=== PATIENT | male | born 1945 | race Caucasian/White ===

== ENCOUNTER 2024-04-10 03:45 | Inpatient (IN) | payer OTHER, MEDICARE ==
[2024-04-10] VITALS (14 sets, daily range): BP systolic 107–131; BP diastolic 48–67; PULSE 60–78; RESP 18–47; TEMP 97.4–97.7; O2SAT 92–97
[~2024-04-10] VITALS: Ht 185.4 cm; Wt 113.0 kg
[~2024-04-10 03:45] MED LIST: ASPI81TA52 PO; ATOR40TA71 PO; CLOP75TA34 PO; FLO0.4C PO; FURO-150 PO; MULT-1085 PO
[2024-04-10 04:05] LABS: BASOPHILS # (AUTO) 0.1 X10'3 (0-0.2); BASOPHILS % (AUTO) 0.8 % (0-1); EOSINOPHILS # (AUTO) 0.2 X10'3 (0-0.9); EOSINOPHILS % (AUTO) 3.4 % (0-6); HEMATOCRIT 37.5 % (42.0-52.0); HEMOGLOBIN 12.5 g/dl (14.0-17.9); LYMPHOCYTES # (AUTO) 1.4 X10'3 (1.1-4.8); LYMPHOCYTES % (AUTO) 20.8 % (21-51); MEAN CORPUSCULAR HEMOGLOBIN 28.8 PG (27.0-31.0); MEAN CORPUSCULAR HGB CONC 33.4 g/dL (33.0-36.5); MEAN CORPUSCULAR VOLUME 86.3 FL (78-98); MEAN PLATELET VOLUME 7.5 FL (7.4-10.4); MONOCYTES # (AUTO) 0.9 X10'3 (0-0.9); MONOCYTES % (AUTO) 13.5 % (2-12); NEUTROPHILS # (AUTO) 4.1 X10'3 (1.8-7.7); NEUTROPHILS % (AUTO) 61.5 % (42-75); PLATELET COUNT 200 X10'3 (140-440); RED BLOOD COUNT 4.35 X10'6 (4.70-6.10); RED CELL DISTRIBUTION WIDTH 16.6 % (11.5-14.5); WHITE BLOOD COUNT 6.7 X10'3 (4.5-11.0)
[2024-04-10] MEDS: ipratropium/albuterol 3ml nebule NEB PRN (04:09)
[2024-04-10] MEDS ORDERED: TAMSULOSIN (04:23)
[2024-04-10] MEDS ORDERED: FLO0.4C (04:23)
[2024-04-10] MEDS ORDERED: SPIR25TA5 (04:23)
[2024-04-10] MEDS ORDERED: ATOR40TA72 (04:23)
[2024-04-10] MEDS ORDERED: TRAZ-251 (04:23)
[2024-04-10] MEDS ORDERED: FURO40TA4 (04:23)
[2024-04-10] MEDS ORDERED: FURO20TA4 (04:23)
[2024-04-10 04:41] LABS: ALANINE AMINOTRANSFERASE 20 U/L (12-78); ALBUMIN 2.7 G/DL (3.4-5.0); ALBUMIN/GLOBULIN RATIO 0.7 (1.1-1.5); ALKALINE PHOSPHATASE 87 IU/L (46-116); ANION GAP 0 (8-16); ASPARTATE AMINO TRANSFERASE 18 U/L (10-37); BILIRUBIN,TOTAL 0.5 MG/DL (0.1-1.0); BLOOD UREA NITROGEN 15 MG/DL (7-18); BUN/CREATININE RATIO 17.9 (10.0-20.0); CALCIUM 8.5 MG/DL (8.5-10.1); CHLORIDE 98 MMOL/L (99-107); CREATININE 0.84 MG/DL (0.60-1.10); GLUCOSE 97 MG/DL (70-104); POTASSIUM 4.8 MMOL/L (3.5-5.1); SODIUM 136 MMOL/L (135-145); TOTAL CARBON DIOXIDE 37.9 MMOL/L (24-32); TOTAL PROTEIN 6.8 G/DL (6.4-8.2); eCRCL 78 ML/MIN; eGFR 88 ML/MIN
[2024-04-10 05:21] LABS: ABG BASE EXCESS 3.7 mmol/L (-2.0-3.0); ABG OXYGEN SATURATION 92.1 % (94.0-98.0); ABG PCO2 (T) 46.7 mmHg (35.0-48.0); ABG PH (T) 7.411 (7.350-7.450); ABG PO2 (T) 65.1 mmHg (83.0-108.0); FCOHb 0.2 % (0.5-1.5); FHHb 7.9 % (0.0-5.0); FMetHb 0.3 % (0.0-1.5); FO2Hb 91.6 % (94.0-98.0); MODE MASK - BIPAP; TOTAL HEMOGLOBIN 12.9 G/dl (13.5-17.5)
[2024-04-10] MEDS: methylPREDNISolone sod succ 125mg/2ml vial IV ONE (05:53)
[2024-04-10] MEDS: CefTRIAXone/D5W-Rocephin 1gm 50 ML IV ONE (05:54)
[2024-04-10] MEDS: albuterol 2.5 MG/3 ML nebule ONE (07:31)
[2024-04-10] MEDS: albuterol 2.5 MG/3 ML nebule NEB SCH (07:32)
[2024-04-10 08:39] LABS: BILIRUBIN,URINE NEGATIVE (Neg); CLARITY,URINE SLIGHTLY CLOUDY (Clear); COLOR,URINE YELLOW (Yellow); GLUCOSE, URINE NEGATIVE (Neg); KETONES,URINE TRACE mg/dl (Neg); LEUKOCYTE ESTERASE ,URINE NEGATIVE (Neg); NITRITES, URINE NEGATIVE (Neg); OCCULT BLOOD,URINE NEGATIVE (Neg); PROTEIN,URINE NEGATIVE (Neg); UA COLLECTION TYPE CLN CATCH MIDSTREAM
[2024-04-10 08:41] LABS: BACTERIA,URINE NONE SEEN /HPF (Neg); RBC,URINE 0-2 /HPF (0-2); SQUAMOUS EPITHELIAL CELL,UR FEW /LPF (FEW); WBC,URINE 0-4 /HPF (0-4)
[2024-04-10] MEDS ORDERED: acetaminophen 325mg tablet PO PRN (09:55)
[2024-04-10] MEDS: LIDOcaine 5% patch TP SCH (09:55)
[2024-04-10] MEDS ORDERED: magnesium Cl slow-release 64mg tablet PO PRN (09:55)
[2024-04-10] MEDS ORDERED: potassium Cl 20 mEq SR tablet PO PRN ×2 (09:55)
[2024-04-10] MEDS ORDERED: magnesium hydroxide 30ml (MOM) UD suspension PO PRN (09:55)
[2024-04-10] MEDS ORDERED: ondansetron/PF 4mg/2ml inj IV PRN (09:55)
[2024-04-10] MEDS ORDERED: potassium Cl 40MEQ/1/2NS 520ml 520 ML IV PRN (09:55)
[2024-04-10] MEDS ORDERED: magnesium sulf-water 2g/50mL 50 ML IV PRN (09:55)
[2024-04-10] MEDS ORDERED: mag hydrox/Alum hydrox/simeth 30ml oral suspension PO PRN (09:55)
[2024-04-10] MEDS ORDERED: magnesium sulf-water 4G/100mL 100 ML IV PRN (09:55)
[2024-04-10 11:17] LABS: MAGNESIUM 2.1 MG/DL (1.5-2.4); POTASSIUM 4.7 MMOL/L (3.5-5.1)
[2024-04-10] MEDS: ipratropium/albuterol 3ml nebule NEB SCH (11:54)
[2024-04-10] MEDS: azithromycin/NS 500mg/250ml 250 ML IV SCH (14:54)
[2024-04-10] MEDS: CefTRIAXone/D5W-Rocephin 1gm 50 ML IV SCH (14:54)
[2024-04-10] MEDS: methylPREDNISolone sod succ/PF 40mg inj. IV SCH (14:55)
[2024-04-10] MEDS: furosemide 40mg/4ml inj IV ONE (17:44)
[2024-04-10] MEDS: glycopyrrolate 1mg tablet PO SCH (17:44)
[2024-04-10 18:35] LABS: RSV LAB CLEARVIEW AG NEGATIVE (NEGATIVE)
[2024-04-10] MEDS: K and/or MAG REPLACEMENT MC SCH (20:00)
[2024-04-10] MEDS: traZODone 50mg tablet PO SCH (20:50)
[2024-04-10] MEDS: docusate sod 100mg capsule PO SCH (20:50)
[2024-04-10] MEDS: guaiFENesin ER 600mg tablet PO SCH (20:50)
[2024-04-10] MEDS: nystatin 15 GM powder TP SCH (20:50)
[2024-04-10] MEDS: heparin, porcine 5000 units/ml vial SQ SCH (20:58)
[2024-04-10] MEDS: PERFLUTREN PROTEIN-A MICROSPHR (Optison) 0.22 MG/ML 3ML VIAL IV ONE (20:59)
[2024-04-11] VITALS (11 sets, daily range): BP systolic 121–149; BP diastolic 49–96; PULSE 20–82; RESP 17–20; TEMP 97.5–98.9; O2SAT 88–96
[2024-04-11 06:41] LABS: BASOPHILS % (AUTO) 0 % (0-1); EOSINOPHILS % (AUTO) 0 % (0-6); HEMATOCRIT 38.1 % (42.0-52.0); HEMOGLOBIN 12.6 g/dl (14.0-17.9); LYMPHOCYTES # (AUTO) 0.5 X10'3 (1.1-4.8); LYMPHOCYTES % (AUTO) 7.4 % (21-51); MEAN CORPUSCULAR HEMOGLOBIN 28.6 PG (27.0-31.0); MEAN CORPUSCULAR VOLUME 86.7 FL (78-98); MEAN PLATELET VOLUME 7.9 FL (7.4-10.4); MONOCYTES # (AUTO) 0.3 X10'3 (0-0.9); MONOCYTES % (AUTO) 4.1 % (2-12); NEUTROPHILS % (AUTO) 88.5 % (42-75); PLATELET COUNT 196 X10'3 (140-440); RED BLOOD COUNT 4.39 X10'6 (4.70-6.10); RED CELL DISTRIBUTION WIDTH 16.5 % (11.5-14.5); WHITE BLOOD COUNT 6.7 X10'3 (4.5-11.0)
[2024-04-11 06:55] LABS: ALANINE AMINOTRANSFERASE 20 U/L (12-78); ALBUMIN 2.6 G/DL (3.4-5.0); ALBUMIN/GLOBULIN RATIO 0.6 (1.1-1.5); ALKALINE PHOSPHATASE 81 IU/L (46-116); ANION GAP 1 (8-16); ASPARTATE AMINO TRANSFERASE 15 U/L (10-37); BILIRUBIN,TOTAL 0.4 MG/DL (0.1-1.0); BLOOD UREA NITROGEN 19 MG/DL (7-18); BUN/CREATININE RATIO 24.1 (10.0-20.0); CALCIUM 8.6 MG/DL (8.5-10.1); CHLORIDE 99 MMOL/L (99-107); CREATININE 0.79 MG/DL (0.60-1.10); GLUCOSE 170 MG/DL (70-104); MAGNESIUM 2.2 MG/DL (1.5-2.4); POTASSIUM 4.2 MMOL/L (3.5-5.1); SODIUM 138 MMOL/L (135-145); TOTAL CARBON DIOXIDE 37.9 MMOL/L (24-32); TOTAL PROTEIN 6.7 G/DL (6.4-8.2); eCRCL 83 ML/MIN; eGFR > 90 ML/MIN
[2024-04-11] MEDS ORDERED: furosemide 20MG tablet PO SCH (08:00)
[2024-04-11] MEDS: multivitamins, therapeutics tablet PO SCH (09:57)
[2024-04-11] MEDS: tamsulosin 0.4mg capsule PO SCH (10:00)
[2024-04-11] MEDS: methylPREDNISolone sod succ 125mg/2ml vial IV SCH (10:03)
[2024-04-11] MEDS: furosemide 40mg tablet PO SCH (17:59)
[2024-04-11] MEDS: lactose-reduced food (Ensure Enlive) - 237ml bottle PO SCH (18:13)
[2024-04-11] MEDS: OSELTAMIVIR 30MG/5ML (6MG/ML) **ORAL** SYRINGE PO SCH (20:00)
[2024-04-11] MEDS ORDERED: oseltamivir 30mg capsule PO SCH (20:00)
[2024-04-12] VITALS (7 sets, daily range): BP systolic 122–124; BP diastolic 45–49; PULSE 46–82; RESP 18–22; TEMP 97.8–98.2; O2SAT 88–92
[2024-04-12 05:46] LABS: BASOPHILS % (AUTO) 0.2 % (0-1); EOSINOPHILS % (AUTO) 0.1 % (0-6); HEMATOCRIT 36.5 % (42.0-52.0); HEMOGLOBIN 11.8 g/dl (14.0-17.9); LYMPHOCYTES # (AUTO) 0.6 X10'3 (1.1-4.8); LYMPHOCYTES % (AUTO) 5.1 % (21-51); MEAN CORPUSCULAR HEMOGLOBIN 28.2 PG (27.0-31.0); MEAN CORPUSCULAR HGB CONC 32.4 g/dL (33.0-36.5); MEAN PLATELET VOLUME 7.8 FL (7.4-10.4); MONOCYTES # (AUTO) 0.4 X10'3 (0-0.9); MONOCYTES % (AUTO) 3.4 % (2-12); NEUTROPHILS # (AUTO) 10.1 X10'3 (1.8-7.7); NEUTROPHILS % (AUTO) 91.2 % (42-75); PLATELET COUNT 219 X10'3 (140-440); RED CELL DISTRIBUTION WIDTH 16.8 % (11.5-14.5)
[2024-04-12 06:04] LABS: ALANINE AMINOTRANSFERASE 24 U/L (12-78); ALBUMIN 2.6 G/DL (3.4-5.0); ALBUMIN/GLOBULIN RATIO 0.7 (1.1-1.5); ALKALINE PHOSPHATASE 74 IU/L (46-116); ANION GAP -1 (8-16); ASPARTATE AMINO TRANSFERASE 17 U/L (10-37); BILIRUBIN,TOTAL 0.4 MG/DL (0.1-1.0); BLOOD UREA NITROGEN 25 MG/DL (7-18); BUN/CREATININE RATIO 32.1 (10.0-20.0); CALCIUM 8.8 MG/DL (8.5-10.1); CHLORIDE 100 MMOL/L (99-107); CREATININE 0.78 MG/DL (0.60-1.10); GLUCOSE 164 MG/DL (70-104); MAGNESIUM 2.3 MG/DL (1.5-2.4); POTASSIUM 4.9 MMOL/L (3.5-5.1); SODIUM 137 MMOL/L (135-145); TOTAL CARBON DIOXIDE 38.1 MMOL/L (24-32); TOTAL PROTEIN 6.5 G/DL (6.4-8.2); eCRCL 84 ML/MIN; eGFR > 90 ML/MIN
[2024-04-12] MEDS: aspirin 81mg tab.chew PO SCH (07:35)
== END 2024-04-12 14:20 | DRG 189 ==
LOC: ER 03:46 → ED HOLD 08:39 → ORTHO 4S 10:12
PROVIDERS: ADMIT Internal Medicine; ATTEND Internal Medicine
PROC: 5A09357 Assistance with Respiratory Ventilation, Less than 24 Consecutive Hours, Continuous Positive Airway Pressure (ICD-10-PCS; principal; 2024-04-10)
PROC: 5A09357 Assistance with Respiratory Ventilation, Less than 24 Consecutive Hours, Continuous Positive Airway Pressure (ICD-10-PCS; 2024-04-12)
DX: J96.01 Acute respiratory failure with hypoxia (principal); J16.8 Pneumonia due to other specified infectious organisms; J44.1 Chronic obstructive pulmonary disease with (acute) exacerbation; I45.3 Trifascicular block; J44.0 Chronic obstructive pulmonary disease with (acute) lower respiratory infection; Z88.0 Allergy status to penicillin; E78.00 Pure hypercholesterolemia, unspecified; Z87.891 Personal history of nicotine dependence; Z20.822 Contact with and (suspected) exposure to COVID-19; Z86.73 Personal history of transient ischemic attack (TIA), and cerebral infarction without residual deficits; E78.5 Hyperlipidemia, unspecified; Z66 Do not resuscitate; G47.00 Insomnia, unspecified; N40.0 Benign prostatic hyperplasia without lower urinary tract symptoms; Z85.118 Personal history of other malignant neoplasm of bronchus and lung; Z79.82 Long term (current) use of aspirin
CPT/HCPCS: 36415; 36600; 71045; 71250; 80053; 81001; 82803; 83735; 83880; 84132; 84145; 85018; 85025; 87502; 87503; 87811; 93005; 93306; 94640; 94660; 94760; 96365; 96366; 96368; 96372; 96375; 96376; 97110; 97116; 97162; 99291; A4615; A6590; G0378; J0456; J0696; J1644; J1940; J2919; J7030; Q9956